=== PATIENT | female | born 1980 | race Caucasian/White ===

== ENCOUNTER 2019-07-29 04:55 | Emergency (ER) | payer OTHER ==
[~2019-07-29] VITALS: Ht 144.8 cm; Wt 57.0 kg
[2019-07-29] MEDS ORDERED: ONDANSETRON HCL 4MG/2ML INJ IV STA (06:31)
[2019-07-29] MEDS ORDERED: MAGNESIUM/ALUMINUM HYDROXIDE/SIMETHICONE 30ML UDC PO STA (06:31)
[2019-07-29] MEDS ORDERED: DICYCLOMINE 10 MG/5 ML ORAL SYR PO STA (06:31)
[2019-07-29] MEDS ORDERED: KETOROLAC 30MG/ML VIAL IV STA (06:31)
[2019-07-29] MEDS ORDERED: FAMOTIDINE 20MG/2ML VIAL IV STA (06:31)
[2019-07-29] MEDS ORDERED: VISCOUS LIDOCAINE 2% 15 ML UDC PO STA (06:31)
[2019-07-29] MEDS ORDERED: LORAZEPAM 0.5MG TABLET PO ONE (06:45)
[2019-07-29 07:47] LABS: CHLORIDE 106 mEq/L (98-107)
[2019-07-29 07:51] LABS: BASOPHILS % 0.4 % (0.0-2.0); EOSINOPHILS % 0.4 % (0.0-5.0); HEMOGLOBIN. 14.6 g/dL (12.0-16.0); LYMPHOCYTES % 14.9 % (20.0-50.0); MEAN CORPUSCULAR HEMOGLOBIN 32.7 pg (28.0-32.0); MEAN CORPUSCULAR VOLUME 93.8 fL (81.0-99.0); MEAN PLATELET VOLUME 9.1 fl (7.4-10.4); MONOCYTES % 8.3 % (2.0-8.0); PLATELET 271 x1000/uL (130-400); RED BLOOD CELL COUNT 4.48 mill/uL (4.2-5.4); RED CELL DISTRIBUTION WIDTH 13.2 % (11.6-14.6)
[2019-07-29 08:12] LABS: HCG SCREEN NEGATIVE
[2019-07-29] MEDS ORDERED: METOCLOPRAMIDE HCL 10MG/2ML VIAL IV ONE (10:00)
[2019-07-29 10:32] VITALS: BP 127/76
== END 2019-07-29 10:35 | disposition home or self-care (01) ==
LOC: ER 04:55
DX: R10.9 Unspecified abdominal pain (principal); Z90.49 Acquired absence of other specified parts of digestive tract
CPT/HCPCS: 36415; 80053; 83690; 84703; 85025; 96374; 96375; 99284; J1885; J2405; J2765; J3490; Z7610